=== PATIENT | male | born 1995 | race Caucasian/White ===

== ENCOUNTER 2023-03-02 15:22 | Emergency (ER) | payer MEDICAID ==
[~2023-03-02] VITALS: Ht 175.3 cm; Wt 95.3 kg
[2023-03-02 15:46] VITALS: BP 152/82; PULSE 58; RESP 18; TEMP 98.3; O2SAT 97
--- NOTE | 2023-03-02 16:03 | NUR ---
PT AMBULATED TO BED 4. ACCOMPANIED BY MOM
--- NOTE | 2023-03-02 16:46 | NUR ---
Note undone in EDM - 03/02/23 at 1701 by [email or web address] PATIENT PRESENTS TO ED WITH RIGHT SIDED ABD PAIN AND PELVIC PAIN POST FALL. PT STATES PAIN HAPPENED TODAY. DENIES N/V/D; SKIN IS PINK/WARM/DRY; AAOX4 WITH EVEN AND STEADY GAIT; LUNGS CLEAR BL; HR EVEN AND REGULAR; PT DENIES ANY FEVER, CP, SOB, OR COUGH AT THIS TIME; PATIENT STATES PAIN OF 7/10 AT THIS TIME; VSS; PATIENT POSITIONED FOR COMFORT; HOB ELEVATED; BEDRAILS UP X2; BED DOWN. CALL LIGHT WITH IN REACH. ER MADE AWARE OF PT STATUS. PMHX ABD PELVIC SWELLING, MASS LUMP CHF CHRONIC KIDNEY DISEASE STAGE 3 HTN PARKINSONS ANEMIA HYPOTHROIDISM RESTLESS LEG SYNDROME MIGRANES NEUROPATHY
[2023-03-02] MEDS ORDERED: TETRACAINE HCL/PF 0.5% OPTH 4 ML BTL OP ONE (17:30)
[2023-03-02] MEDS ORDERED: FLUORESCEIN OPTH STRIP 1 MG OP ONE (17:30)
--- NOTE | 2023-03-02 17:55 | NUR ---
AT BS TO CHECK EYE PRESSURE VIA GIRISH PEN, PER EYE PRESSURE=23 mmHG
[2023-03-02 17:56] VITALS: BP 132/86; PULSE 63; RESP 18; TEMP 98.3; O2SAT 97
--- NOTE | 2023-03-02 18:16 | NUR ---
Patient discharged with v/s stable. Written and verbal after care instructions FOR BLURRED VISION given and explained. Patient verbalized understanding. Ambulatory with steady gait. All questions addressed prior to discharge. Advised to follow up with PMD.
--- NOTE | 2023-03-02 18:20 | NUR ---
The patient's care was reviewed and supervised by Faith Urbina, RN, RN.
== END 2023-03-02 18:16 | disposition home or self-care (01) ==
LOC: MED 15:22
DX: H53.142 Visual discomfort, left eye (principal); Z79.899 Other long term (current) drug therapy
CPT/HCPCS: 99284